=== PATIENT | male | born 1960 | race Caucasian/White ===

== ENCOUNTER 2024-02-07 09:20 | Inpatient (IN) | payer BC, SELFPAY ==
[2024-02-07] VITALS (15 sets, daily range): BP systolic 117–140; BP diastolic 75–87; BMI 28.3; BMI 29.7
--- NOTE | 2024-02-07 08:02 | ED.GENMED ---
History of Present Illness
General
Chief Complaint: Breathing Problem
Source: patient, records and spouse
Time Seen by Provider: 02/07/24 07:45
Travel History
Have you had any contact with someone who has COVID-19?: No
Do you have any symptoms of coronavirus? Fever > 100 degrees, chills, cough, shortness of breath, sore throat, loss of taste or smell, muscle aches, or headache?: No
History of Present Illness
History of Present Illness:
63-year-old male with past medical history of coronary artery disease, hypertension, previous GI bleeding sent to the emergency department by his primary care provider after he has been feeling short of breath, exertional dyspnea, palpitations and
generalized fatigue over the last 2 weeks, has had a downtrending hemoglobin on outpatient labs with his last hemoglobin being around 7 per family doctor who called the patient last night and advised to come to the ER. Patient states at rest he is
asymptomatic. He does note that when exerting himself he will feel some chest tightness. He notes that about 1 week ago he did have a bloody bowel movement but states he has not seen any blood since and denies dark stools. Patient denies any
abdominal pain, fevers, chills, rigors, nausea, vomiting, urinary symptoms or any other concerns. He does take a daily 81 mg aspirin but is no longer on Plavix or other anticoagulants.
Past History
Past History
ED Past Medical History: CAD, HTN, Hypercholesterolemia, Psychiatric and Other (Diverticulosis; right radial artery AV fistula; obstructive sleep apnea; GI bleed)
ED Past Surgical History: Cardiac (PTCA to LAD October 2022) and Tonsilectomy
Patient has exhibited threatening behavior?: No
Social History
Tobacco: Non-smoker
Alcohol: None
Drug: None
Personal:
Living: with family
Employment: Employed
Family History
Family History: Other
Review of Systems
Review of Systems
All Other Systems: ROS reviewed and negative except as documented in HPI and ROS
Phy Exam
Physical Exam
Physical Exam:
GENERAL: Alert , in no apparent distress
EYE: clear conjunctiva b/l
HEAD: NCAT
ENT: o/p clr, mmm.
CARDIAC: Borderline tachycardic rate and rhythm, faint systolic murmur left sternal border
LUNGS: Clear breath sounds bilaterally, no acute respiratory distress, no wheezes/rales/rhonchi
ABDOMEN: Soft, without focal tenderness, no r/g, no cvat
Rectal exam: Dark brown stool, heme positive
NEUROLOGICAL: Alert and oriented
SKIN: Warm and dry, skin intact.
MUSCULOSKELETAL: well perfused.
PSYCH: Normal and appropriate interaction.
Scores
Heart Failure Risk
Heart Failure Risk Score: Not Applicable
Heart Score for Chest Pain Patients
STEMI patient?: Not applicable
Withdrawal Assessment of Alcohol
Withdrawal Assessment Completed?: Not applicable
Course
Orders/Labs/Results
Orders:
Orders
02/07/24 07:55
Blood Bank Products [* Blood Bank Products] Urgent
Blood Bank Products: *Packed RBC Leuko(PRBC's)
Quantity: 1
Transfuse Today: Yes
Reason: Bleeding
Cardiac Monitoring- Treatment ONCE
IV Insert/Care/Rem.- Treatment PRN
Pantoprazole 80 mg/100 ml Nss [Protonix] 80 mg in 100 ml IV NOW
Pantoprazole [Protonix IV] 80 mg IV NOW STA
02/07/24 08:23
Type+Screen Urgent
Complete Blood Count/With Diff Urgent
Comprehensive Metabolic Panel Urgent
PTT Urgent
Prothrombin Time Urgent
02/07/24 08:57
Admit/Transfer Patient As Directed
Co-Sign Provider:
Level of Care: Inpatient admission
Assign to:: Telemetry
Physician / Group: Dr Griffin
Diagnosis: Anemia/GI bleed
Reason for Telemetry: Arrhythmia
Date to Stop Telemetry: 02/10/24
Time to Stop Telemetry: 11:00
Reason for Hospitalization: pte p/w weakness found severe anemia
Expected length of stay greater than two midnights?: Yes
ELOS- Estimated Length of Stay in days: 2
I certify the patient meets the requirements for IP care: Yes
02/07/24 08:58
Code Status As Directed
Resuscitation Status: Full Code
02/07/24 09:19
GASTROINTESTINAL CONSULT Routine
Consulting Provider: Kevin Ramsey
Was physician already notified: Yes
Reason for consult: Anemia/GI bleed
02/07/24 09:30
0.9% Sodium Chloride 1000 ml [Nss] 1,000 ml IV 85 mls/hr
02/07/24 13:00
H&H Q8H
02/07/24 18:00
Pantoprazole 80 mg/100 ml Nss [Protonix] 80 mg in 100 ml IV Q10H
02/07/24 21:00
H&H Q8H
02/10/24 11:00
DC Protocol for Telemetry ONCE
Abnormal Lab Results
02/07/24
08:23
RBC 2.16 L 10^6/uL
(4.70-6.10)
Hgb 6.5 L* g/dL
(13.0-18.0)
Hct 19.5 L* %
(39.0-52.0)
Absolute Monos (auto) 0.8 H 10^3/uL
(0.1-0.6)
Monocytes % 13.5 H %
(1.7-9.3)
Chloride 109 H mmol/L
(98-107)
Total Protein 5.7 L g/dl
(6.3-8.2)
Crossmatch IS Only See Detail
02/07/24 08:23
02/07/24 08:23
Vital Signs
Initial and Last Documented VS:
Initial Vital Signs
Temp Pulse Resp BP Pulse Ox
98.1 F 106 16 138/81 100
02/07/24 07:39 02/07/24 07:39 02/07/24 07:39 02/07/24 07:39 02/07/24 07:39
Last Documented Vital Signs
Temp Pulse Resp BP Pulse Ox
98.2 F 84 19 117/75 97
02/07/24 09:53 02/07/24 10:45 02/07/24 10:45 02/07/24 10:00 02/07/24 10:45
MDM/Problems Addressed
Differential Diagnosis Includes:
Upper GI bleed, lower GI bleed, symptomatic anemia, less concern for an atypical ACS presentation
MDM/Problems Addressed:
63-year-old male presenting emergency department for evaluation at the request of primary care physician for suspected GI bleeding. Patient has had a downtrending hemoglobin over the last month. 2 separate episodes of bloody stool but none within
the last 10 days. Abdominal exam reassuring but patient did have heme positive stool on rectal exam. Last hemoglobin here at this facility in September 2023 was greater than 14. Will check labs, consent for blood products with anticipation of
admission with GI in consultation.
Chronic conditions affecting care: CAD and Other (Previous GI)
Acute Exacerbation and/or Progression of Chronic Illness: Other
*Pulse Oximetry
Patient hypoxic: no
*Sociology Research Assistant Interpretation
Rate: normal
Rhythm: sinus
*Critical Care Note
Total Time (30-74mins, 75-104mins- exclusive of procedures): 30
comment:
Critical care statement: A total of 30 minutes of critical care time was provided for this patient. This includes management of unstable vital signs, evaluation of the patient at bedside, reviewing the patient's pertinent medical records, discussion
with consultants, review of old EKGs and review of pertinent medical records. This time with separate from time utilized to perform the aforementioned documented procedures
Data Reviewed
Review of Other/Old Records Reveals: Labs, Records and Discharge Summary
Comment
Comment:
In October 2022 patient was admitted at this facility for GI bleeding, found to have an active bleeding within the left upper quadrant in the area of the jejunum. Patient ultimately had to be transferred to [facility] for endoscopy
however upon getting to [facility] the bleeding had mostly resolved and they did not pursue any further testing. Patient did have a [facility] endoscopy done in January or February 2023 which also did not show any residual areas of bleeding or
complications. Patient did have an appointment with GI scheduled for tomorrow with Dr. Bermudez.
Patient Management
Discussion with other providers: Hospitalist and Tractor Crane Engineer
Escalation/DeEscalation of care consider admission/obs:
Patient's hemoglobin returned at 6.5. He remains hemodynamically stable with a heart rate between 90 and 100. Blood pressure remains normal. I notified hospitalist team who accepts for continued evaluation and treatment. GI team was also
notified and will come to the ER to evaluate patient. He was consented for blood products.
ED Attending Note
-
Portions of this chart may have been created with voice recognition software.� Occasional wrong word or��sound alike� substitutions may have occurred due to the inherent limitations of voice recognition software.
Discharge Plan
Departure
Patient Disposition: Admit
Date of Disposition: 02/07/24
Time of Disposition: 08:48
Presentation/result/management discussed w/ accepting MD/DO: Hospitalist
Discharge Problem:
Acute gastrointestinal bleeding, Anemia
Interventions
Interventions:
*Risk Screen - Suicide Last Done: 02/07/24 07:39
*Neglect/Abuse Screening Last Done: 02/07/24 07:39
*ED COVID-19 Vaccine History Last Done: 02/07/24 07:39
ED- Cardiac Assessment Last Done: 02/07/24 09:44
ED- Pulmonary Assessment Last Done: 02/07/24 08:29
[2024-02-07] MEDS: PROTONIX IV 80 MG IV (08:37)
[2024-02-07 08:39] LABS: % Basophils 1.2 % (0-2); % Eosinophils 3.4 % (0-6); % Immature Granulocytes 0.2 % (0-0.5); % Lymphocytes 29.5 % (20.5-51.1); % Monocytes 13.5 % (1.7-9.3); % Neutrophils 52.2 % (42.2-75.2); Absolute Basophils 0.1 10^3/uL (0-0.2); Absolute Eosinophils 0.2 10^3/uL (0-0.7); Absolute Lymphocytes 1.7 10^3/uL (1.2-3.4); Absolute Monocytes 0.8 10^3/uL (0.1-0.6); Absolute Neutrophils 2.9 10^3/uL (1.4-6.5); Mean Corp Hgb Conc. 33.3 g/dL (33.0-37.0); Mean Corpuscular Hgb 30.1 pg (27.0-31.0); Mean Corpuscular Volume 90.3 fL (80.0-94.0); Mean Platelet Volume 9.2 fL (7.4-10.4); Nucleated Red Blood Cells % 0 % (-); Platelet Count 211 10^3/uL (130-400); Red Blood Cell Count 2.16 10^6/uL (4.70-6.10); Red Cell Dist. Width 12.1 % (11.5-14.5); White Blood Cell Count 5.6 10^3/uL (4.8-10.8)
[2024-02-07 08:42] LABS: ALT (SGPT) 23 U/L (0-50); AST (SGOT) 25 U/L (17-59); Albumin 3.5 g/dl (3.5-5.0); Alkaline Phosphatase 59 U/L (38-126); Blood Urea Nitrogen 15 mg/dl (9-20); Calcium 9.1 mg/dl (8.4-10.2); Carbon Dioxide 25 mmol/L (22-30); Chloride 109 mmol/L (98-107); Estimated Creatinine Clearance 80 ml/min; Glucose 93 mg/dl (70-99); INR 1.01; PT 13.3 Sec (11.4-14.6); Sodium 137 mmol/L (135-145); Total Bilirubin 0.2 mg/dl (0.2-1.3); Total Protein 5.7 g/dl (6.3-8.2); eGFR > 60.00
[2024-02-07 08:43] LABS: APTT 31.8 Sec (23.4-35.0)
[2024-02-07 08:44] LABS: Hematocrit 19.5 % (39.0-52.0); Hemoglobin 6.5 g/dL (13.0-18.0)
[2024-02-07] MEDS: PROTONIX 100 IV ×2 (08:46→19:47)
--- NOTE | 2024-02-07 09:00 | HPS.HSE ---
Family Physician
-
Family Physician: Reza Meyer, DO
Chief Complaint
-
Abnormal labs, low hemoglobin
History of Present Illness
Patient is 63 years old male with history of hypertension hyperlipidemia CAD, FAVIOLA, GI bleed in the past, presented to the hospital with abnormal labs and generalized weakness. Patient had abnormal labs with a hemoglobin around 7 and his primary
care physician sent him over for further evaluation he has been experiencing shortness of breath, palpitations, profound weakness over the last couple weeks that prompted the labs to be checked by PCP as outpatient. Patient also complains of dark
maroon stools for several days ago but denies any melena or hematemesis. He denies chest pain. He does take aspirin on a regular basis but denies any other anticoagulants or NSAIDs use. Patient denies abdominal pain, dysuria urgency or frequency.
In the ED, hemoglobin 6.5 MCV of 90.3, his last hemoglobin back in 2022 was 14.8. He is hemodynamically stable. He was referred to hospitalist service for further evaluation.
Medical History
Past Medical History
Past Medical History: Reports Other (Hypertension, hyperlipidemia, GI bleed, syncope, obstructive sleep apnea, diverticulosis.)
Past Surgical History: Reports Other (Tonsillectomy, PCI in the past.)
Social History
Tobacco: Non-smoker
Alcohol: None
Drug: None
Family History
Family History: Not pertinent
Allergies / Home Medications
Allergies reflects when Allergies were last updated in [employer].
Home Medications with original date entered in [employer]
Allergy/Medication List:
Allergies
Allergy/AdvReac Type Severity Reaction Status Date / Time
No Known Allergies Allergy Verified 01/01/23 22:15
Home Medications
ascorbic acid (vitamin C) 1,000 mg tablet 1,000 mg PO DAILY@1330 Supplement 10/23/22
cholecalciferol (vitamin D3) 25 mcg (1,000 unit) tablet 25 mcg PO DAILY@1330 Supplement 10/23/22
multivitamin 1 tab PO DAILY@1330 Supplement 10/23/22
fexofenadine 60 mg-pseudoephedrine ER 120 mg tablet,ext.release,12 hr (Beatriz-D 12 Hour) 1 tab PO HSPRN PRN Allergies/congestion 10/24/22
rosuvastatin 20 mg tablet (Crestor) 20 mg PO DAILY@1330 01/02/23
docusate sodium 100 mg capsule (Colace) 100 mg PO DAILYPRN PRN constipation 02/07/24
psyllium husk 2.6 gram/4.1 gram oral powder 1 tbsp PO DAILY 02/07/24
simethicone 80 mg chewable tablet 80 mg PO BIDPRN PRN GAS PAINS 02/07/24
Review of Systems
-
A 12 point ROS was completed and negative except as noted: Yes
Physical Exam
Vital Signs
Vital Signs
Temp Pulse Resp BP Pulse Ox
98.1 F 88 15 138/81 99
02/07/24 07:39 02/07/24 08:51 02/07/24 08:51 02/07/24 07:39 02/07/24 08:51
Physical exam:
General: Acutely ill
HEENT: Normocephalic, Atraumatic and Dry Mucous Membranes
Respiratory: Clear to Auscultation; Negative Wheezes, Rales or Rhonchi
Cardiac: Regular Rhythm and S1/S2
GI: Soft, Nontender and Nondistended
Musculoskeletal: No Clubbing, No Cyanosis and No Edema
Neuro: Awake, Alert and Oriented
Psych: Calm
Physical Exam
General: Other
Laboratory Results
-
02/07/24 08:23
02/07/24 08:23
Laboratory Results
PT 13.3 Sec (11.4-14.6) 02/07/24 08:23
INR 1.01 02/07/24 08:23
APTT 31.8 Sec (23.4-35.0) 02/07/24 08:23
Total Bilirubin 0.2 mg/dl (0.2-1.3) 02/07/24 08:23
AST 25 U/L (17-59) 02/07/24 08:23
ALT 23 U/L (0-50) 02/07/24 08:23
Alkaline Phosphatase 59 U/L (38-126) 02/07/24 08:23
Impression/Plan
-
IMPRESSION:
Patient is 63 years old male with history of CAD, hypertension, hyperlipidemia, among other medical problems who came into the hospital with severe anemia. Concerns for likely acute upper GI bleed as etiology of his anemia. Patient at increased
risk of morbidity and mortality due to acute presentation and multiple comorbidities therefore he will need to be treated in the hospital and monitor for progress and or toxicity of treatment.
PLAN:
Acute blood loss anemia:
Likely due to GI bleed
Hemoglobin 6.5 today
Proceed for blood transfusion
Monitor hemoglobin closely
Acute GI bleed, suspect upper:
Keep n.p.o.
IV fluid
Vascular access
Protonix drip
Monitor hemoglobin close
GI consult ([place] texted GI today)
CAD:
Chest pain-free
Patient on aspirin-will hold aspirin for now
Patient with stent to mid LAD on October 2022 and residual CAD in the apical LAD, distal circumflex, and posterolateral branch treated with medical management. He was on DAPT up until Oct this year per patient report.
Hypertension:
IV hydralazine as needed
Hold oral antihypertensive until able to take oral although I did not see any HTN meds on his list but will reeval
Hyperlipidemia:
Hold statin until able to take oral
DVT prophylaxis:
SCDs
CODE STATUS:
Full code
Total time spent on today's encounter was 75 minutes which included time spent in counseling the patient/family regarding diagnosis and treatment plan as listed above, goals of care, and symptom management. Case was discussed with nursing staff,
specialists, and care coordinators/case management. All labs and imaging personally reviewed by me. Remainder the time spent in detailed review of previous records, lab data, imaging, and other medical provider documentation.
--- NOTE | 2024-02-07 09:50 | CON.GI ---
Addendum entered and electronically signed by Kevin Ramsey MD 02/07/24 12:07:
I saw and examined the patient.
The PA's note was reviewed and I agree with the note.
Comment:
The pt is a 63 year old male with h/o CAD, PTCA to LAD in October 2022 currently on aspirin only stopped Plavix in October 2023, HTN, hyperlipidemia, diverticulosis, right radial artery AV fistula, FAVIOLA, and previous obscure GI bleed who p/w
symptomatic anemia and rectal bleeding.
Impression / Rec:
1. Rectal bleeding, symptomatic anemia - normal baseline Hgb, now 6.5 here. Having associated symptoms. He reports having intermittent stool mixed with blood for past few weeks. He has h/o significant obscure GI bleed about a year ago,
BRBPR/maroon colored bleeding, requiring 8 units of pRBC transfusion. Colonoscopy during that admission failed to isolate source of bleed, CTA showed possible bleeding lesion in prox jejunum, had push enteroscopy which was also -ve. [facility]; however this also failed to isolate bleeding lesion, reportedly showed GAVE and APC'ed but otherwise no other lesion as identified. He also had -ve capsule endoscopy in 11/2022. Patient remained
stable up until this point. Not on DAPT, just ASA. Given his previous history, ? if we can isolate the source of bleeding, but will plan for repeat push enteroscopy and colonoscopy tomorrow.
Original Note:
Consultation
-
Date/Time Consultation Requested: 02/07/24929
Date/Time Consultation Performed: 02/07/2450
Requesting Provider: RADHA Morrow
Performing Provider: Dr. Ramsey/CONSTANCE Waters
Reason for Consultation: anemia, heme pos stool
Medical History
Chief Complaint / HPI
Chief Complaint: anemia, sob
History of Present Illness:
63 yo male with a PMH significant for CAD, PTCA to LAD in October 2022 currently on aspirin only stopped Plavix in October 2023, hypertension, hyperlipidemia, diverticulosis, right radial artery AV fistula, obstructive sleep apnea, significant GI
bleed in October 2022 with acute blood loss anemia requiring 8 units of packed red blood cells and transferred to [facility]. During the hospitalization he was admitted between 10/23/2022 through 11/03/2022 for GI bleed and
acute blood loss anemia. During that time he had a colonoscopy that showed residual brown liquid throughout colon. Without any signs of bleeding. There was pancolonic diverticulosis. During the hospitalization he had multiple periods of
hypotension followed by bright red blood/maroon bleeding. He went for cardiac catheterization on 10/30/2022 that showed an ulcerated area of the mid LAD with stenosis of the stent was placed. The patient was started on Brilinta and aspirin at that
time. The patient had another episode of hypotension during that time with associated bright red blood per rectum. He underwent an emergent EGD that showed a Schatzki's ring, small hiatal hernia, normal stomach and normal duodenum as well as
normal jejunum. The patient had a CTA that showed possible area within the small bowel that was bleeding. Emergent transfer to [facility] was initiated. While at [facility] they changed him from Brilinta to Plavix and he
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 There were no other areas of bleeding to the proximal ileum. The patient had an outpatient capsule endoscopy that was negative. He
was continued on aspirin 81 mg and Plavix. He had a follow-up CBC that showed a hemoglobin of 15.6 in February 2023. The patient came off of pantoprazole on his own. The patient was feeling fine and was seen by cardiology in September. His hemoglobin
at that time was 14.8. Had a stress test which was normal. Plavix was stopped as it had been 1 year since his stent. He remained on aspirin 81 mg. The patient states that intermittently he uses ibuprofen for aches pains or headaches. The
patient states that approximately 3 weeks ago he started having some dyspnea on exertion and fatigue. He did also start to notice that he had intermittent episodes of bright red blood mixed in with the stool and in the bowl on intermittent
occasions usually associated with constipation. The patient had CBC performed by his PCP on 01/29/2023 and at that time his hemoglobin was 8.7. This was repeated again on 02/05/2023 and it was 7.2. He was urged to come to the emergency room given
his symptoms and persistent decline in hemoglobin. Where this morning his hemoglobin was 6.5, rectal exam in the ER was dark brown OB positive. Patient states he has intermittent heartburn/indigestion once every couple weeks. He cannot identify
any triggers. He does not smoke. He does not drink any alcohol. He denies any fevers, chills, nausea, vomiting, melena, dysphagia or dyne aphasia. He denies any early satiety or unintentional weight loss
Past Medical History
Past Medical History: CAD (LAD PTCA), HTN, Hypercholesterolemia and Other (diverticulosis, sleep apnea, right radial AV fistula)
Past Surgical History: Cardiac (PTCA)
Social History
Tobacco: Non-Smoker
Alcohol: None
Drug: None
Personal:
Living: With Family
Family History
Family History: Other (No family history gastrointestinal malignancy or IBD)
Allergies / Home Medications
Allergy/AdvReac Type Severity Reaction Status Date / Time
No Known Allergies Allergy Verified 01/01/23 22:15
�Medication �Instructions �Recorded
ascorbic acid (vitamin C) 1,000 mg 1,000 mg PO DAILY@1330 Supplement 10/23/22
tablet
cholecalciferol (vitamin D3) 25 25 mcg PO DAILY@1330 Supplement 10/23/22
mcg (1,000 unit) tablet
multivitamin 1 tab PO DAILY@1330 Supplement 10/23/22
fexofenadine 60 mg-pseudoephedrine 1 tab PO HSPRN PRN 10/24/22
ER 120 mg tablet,ext.release,12 hr Allergies/congestion
(Beatriz-D 12 Hour)
rosuvastatin 20 mg tablet (Crestor) 20 mg PO DAILY@1330 High 01/02/23
Cholesterol
docusate sodium 100 mg capsule 100 mg PO DAILYPRN PRN constipation 02/07/24
(Colace)
psyllium husk 2.6 gram/4.1 gram 1 tbsp PO DAILY Gastrointestinal 02/07/24
oral powder Issue
simethicone 80 mg chewable tablet 80 mg PO BIDPRN PRN GAS PAINS 02/07/24
Review of Systems
-
All other systems: A 12 pt ROS was Negative except as stated above in HPI
Vital Signs
Temp Pulse Resp BP Pulse Ox
98.1 F 90 16 126/81 98
02/07/24 09:34 02/07/24 09:34 02/07/24 09:34 02/07/24 09:34 02/07/24 09:34
Physical Exam
Exam
General: No Apparent Distress
HEENT: Normocephalic
Respiratory: Clear
Cardiac: Regular Rhythm
GI: Soft, Non Tender, Non Distended and Normal Bowel Sounds
Rectal: Hem Positive (Brown OB positive stool per ER)
Musculoskeletal: No Edema
Skin: Warm and Dry
Neuro: AO x 3
Psych: Calm
Results
WBC 5.6 10^3/uL (4.8-10.8) 02/07/24 08:23
Hgb 6.5 g/dL (13.0-18.0) L* 02/07/24 08:23
Hct 19.5 % (39.0-52.0) L* 02/07/24 08:23
MCV 90.3 fL (80.0-94.0) 02/07/24 08:23
Plt Count 211 10^3/uL (130-400) 02/07/24 08:23
Absolute Neuts (auto) 2.9 10^3/uL (1.4-6.5) 02/07/24 08:23
PT 13.3 Sec (11.4-14.6) 02/07/24 08:23
INR 1.01 02/07/24 08:23
APTT 31.8 Sec (23.4-35.0) 02/07/24 08:23
Sodium 137 mmol/L (135-145) 02/07/24 08:23
Potassium 4.0 mmol/L (3.5-5.1) 02/07/24 08:23
Chloride 109 mmol/L (98-107) H 02/07/24 08:23
Carbon Dioxide 25 mmol/L (22-30) 02/07/24 08:23
BUN 15 mg/dl (9-20) 02/07/24 08:23
Creatinine 0.8 mg/dL (0.7-1.3) 02/07/24 08:23
Calcium 9.1 mg/dl (8.4-10.2) 02/07/24 08:23
Total Bilirubin 0.2 mg/dl (0.2-1.3) 02/07/24 08:23
AST 25 U/L (17-59) 02/07/24 08:23
ALT 23 U/L (0-50) 02/07/24 08:23
Alkaline Phosphatase 59 U/L (38-126) 02/07/24 08:23
Diagnostic Image Results:
Prior GI Procedures:
--- 12/12/2022 VCS: No bleeding identified
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 No bleeding visualized up to proximal ileum. Area reached and ileum tattooed.
--- 10/31/2022 EGD (Dr. Bermudez) Schatzki's ring. Small hiatal hernia. Normal stomach, normal duodenum, normal jejunum.
--- 10/26/2022 colonoscopy (Dr. Navarro) fair prep, residual brown liquid in colon, diverticulosis throughout entire colon. No evidence of bleeding.
Assessment / Plan
-
63 yo male with a PMH significant for CAD, PTCA to LAD in October 2022 currently on aspirin only stopped Plavix in October 2023, hypertension, hyperlipidemia, diverticulosis, right radial artery AV fistula, obstructive sleep apnea, significant GI
bleed in October 2022 with acute blood loss anemia requiring 8 units of packed red blood cells and transferred to [facility] after having EGD/enteroscopy, colonoscopy at [facility] without source of bleeding
identified. CTA that showed possible area within small bowel (left upper quadrant and jejunum) that was bleeding. Patient underwent enteroscopy at [facility] that showed GAVE-like features in stomach treated with APC. No
Cervantes visualized up to proximal ileum and the area was reached in ileum and tattooed. Patient was stopped on Brilinta and changed to Plavix. Video capsule study performed without patient showed no signs of bleeding. Patient remained stable up
until this point. Hemoglobin in September was 12. Started having dyspnea on exertion approximately 3 weeks ago associated with intermittent blood mixed in stool. With progressive blood loss anemia. Hemoglobin on 01/30/2024 was 8.7, repeat on
02/06/2024 was 7.2 and this morning at arrival in ER was 6.5.
Impression:
GI bleeding
Acute blood loss anemia
History LAD stent on aspirin 81 mg only
Plan:
-Transfuse to keep hemoglobin greater than 8 given cardiac history. Patient also has history of need for significant transfusion in the past requiring 8 units of packed red blood cells with prior GI bleed.
-Start pantoprazole 40 mg twice daily
-Clear liquids, no reds
-Plan on EGD/push enteroscopy with colonoscopy tomorrow
-Trend labs
-Further recommendations to be forthcoming.
Data Reviewed
-
Old Records: Reviewed
-
-
Thank you for consultation and allowing me to participate in the patient's care. Please call the senior instructional designer GI physician during the after hours with any questions or concerns.
--- NOTE | 2024-02-07 12:07 | W.PN.UPDATE ---
Update Note
Progress Note Update
billing
[2024-02-07 13:21] LABS: Hematocrit 24.4 % (39.0-52.0)
[2024-02-07] MEDS: NSS 1000 IV (13:50)
[2024-02-07] MEDS: NULYTELY SOLUTION 4 LITERS PO (20:00)
[2024-02-07 21:00] LABS: Hematocrit 24.2 % (39.0-52.0); Hemoglobin 8.1 g/dL (13.0-18.0)
[2024-02-08] VITALS (12 sets, daily range): BP systolic 105–122; BP diastolic 64–76
--- NOTE | 2024-02-08 | PTCARENOTE ---
Pt tolerated colonoscopy prep. Bowels are clear. Pt is resting comfortably w/ call cullen within reach.
[2024-02-08] MEDS: NSS 1000 IV (01:28)
[2024-02-08] MEDS: PROTONIX 100 IV (04:05)
[2024-02-08 05:32] LABS: Hematocrit 21.9 % (39.0-52.0); Hemoglobin 7.3 g/dL (13.0-18.0); Mean Corp Hgb Conc. 33.3 g/dL (33.0-37.0); Mean Corpuscular Hgb 29.4 pg (27.0-31.0); Mean Corpuscular Volume 88.3 fL (80.0-94.0); Mean Platelet Volume 9.3 fL (7.4-10.4); Platelet Count 204 10^3/uL (130-400); Red Blood Cell Count 2.48 10^6/uL (4.70-6.10); White Blood Cell Count 6.9 10^3/uL (4.8-10.8)
[2024-02-08 05:43] LABS: INR 1.16; PT 14.8 Sec (11.4-14.6)
[2024-02-08 06:07] LABS: Blood Urea Nitrogen 8 mg/dl (9-20); Calcium 8.7 mg/dl (8.4-10.2); Carbon Dioxide 25 mmol/L (22-30); Chloride 111 mmol/L (98-107); Estimated Creatinine Clearance 103 ml/min; Glucose 79 mg/dl (70-99); Potassium 4.3 mmol/L (3.5-5.1); Sodium 140 mmol/L (135-145); eGFR > 60.00
--- NOTE | 2024-02-08 07:41 | W.PN.HOSP.TC ---
Addendum entered and electronically signed by Hayden Griffin MD 02/08/24 13:48:
GI said okay to restart aspirin today.
Original Note:
Today's Communication/Plan
-
EGD and colonoscopy today. Blood transfusion. Monitor hemoglobin
Assessment / Plan
Assessment / Plan
Physical exam:
General: Acutely ill
HEENT: Normocephalic, Atraumatic and Dry Mucous Membranes
Respiratory: Clear to Auscultation; Negative Wheezes, Rales or Rhonchi
Cardiac: Regular Rhythm and S1/S2
GI: Soft, Nontender and Nondistended
Musculoskeletal: No Clubbing, No Cyanosis and No Edema
Neuro: Awake, Alert and Oriented
Psych: Calm
A/P:
Acute blood loss anemia:
Likely due to GI bleed
Hemoglobin 6.5--> 7.3
Receiving repeated blood transfusion today
Status post blood transfusion yesterday
Monitor hemoglobin closely
Acute GI bleed, suspect upper:
Keep n.p.o. for EGD and colonoscopy today and resume diet afterwards.
IV fluid
Vascular access
Protonix drip
Monitor hemoglobin closely
GI consult appreciated
EGD and colonoscopy unremarkable per GI report. Plan for capsule endoscopy as outpatient. Monitor hemoglobin. Restart aspirin when okay per GI.
CAD:
Chest pain-free
Patient on aspirin-will hold aspirin for now
Patient with stent to mid LAD on October 2022 and residual CAD in the apical LAD, distal circumflex, and posterolateral branch treated with medical management. He was on DAPT up until Oct this year per patient report.
Hypertension:
IV hydralazine as needed
Hold oral antihypertensive until able to take oral although I did not see any HTN meds on his list but will reeval
Hyperlipidemia:
Hold statin until able to take oral
DVT prophylaxis:
SCDs
CODE STATUS:
Full code
Anticipated Discharge: 24 - 48 hours
Subjective/Interval History
-
Date of Service: February 08, 2024
Patient had bowel prep overnight. No chest pain or shortness of breath or abdominal pain.
Objective Data
-
Labs:
Laboratory Results
02/07/24 02/08/24
20:55 05:16
WBC 6.9
Hgb 8.1 L 7.3 L
Hct 24.2 L 21.9 L
Plt Count 204
PT 14.8 H
INR 1.16
Sodium 140
Potassium 4.3
Chloride 111 H
Carbon Dioxide 25
BUN 8 L
Creatinine 0.7
Glucose 79
Calcium 8.7
Vital Signs:
Vital Signs
Temp Pulse Resp BP Pulse Ox
98.6 F 90 19 115/76 98
02/08/24 03:16 02/08/24 03:16 02/08/24 03:16 02/08/24 03:16 02/08/24 03:16
I&O
02/07/24 02/08/24 02/09/24
06:59 06:59 06:59
Intake Total 4450 / 4450
Output Total 300 / 300
Balance 4150 / 4150
Review of Systems
-
All other systems: Reviewed and negative
[2024-02-08] MEDS: METAMUCIL, KONSYL PO (09:06)
--- NOTE | 2024-02-08 12:18 | PTCARENOTE ---
One unit of PRBCs transfused without issues. No signs/symptoms of reaction noted. HGB this morning - 7.3. Patient went to GI lab for colonoscopy/endoscopy.
--- NOTE | 2024-02-08 12:41 | W.PN.UPDATE ---
Update Note
Progress Note Update
s/p DEEP ENTEROSCOPY AND Colonoscopy
- No evidence of bleeding noted from the upper GI tract until the proximal jejunum
- Preparation of the colon was fair.
- Stool in the entire examined colon.
- Diverticulosis in the sigmoid colon and in the descending colon.
- Internal hemorrhoids.
- No specimens collected.
Recommendation:
- To visualize the small bowel, perform video capsule endoscopy at appointment to be scheduled.
- No old or fresh blood noted in the colon.
- OK for low residue diet.
[2024-02-08] MEDS: NSS IV (13:46)
[2024-02-08] MEDS: VITAMIN C 1000 MG PO (14:37)
[2024-02-08] MEDS: LOW STRENGTH ASPIRIN 81 MG PO (14:37)
[2024-02-08] MEDS: CRESTOR 20 MG PO (14:38)
[2024-02-08] MEDS: THERAGRAN 1 TABLET PO (14:38)
[2024-02-08] MEDS: VITAMIN D3 (cholecalciferol) 25 MCG PO (14:39)
[2024-02-08] MEDS: TYLENOL 650 MG PO (14:42)
[2024-02-08] MEDS: PROTONIX 40 MG PO (19:51)
[2024-02-08] MEDS: CLARITIN 10 MG PO (19:51)
[2024-02-09] VITALS: BP 125/68
[2024-02-09] MEDS: MYLICON 80 MG PO (00:08)
[2024-02-09 00:22] VITALS: BP 125/68
--- NOTE | 2024-02-09 00:54 | PTCARENOTE ---
00:00 pt rang call cullen stating he was having some chest discomfort radiating to his back. VSS - BP 125/68, HR 79, SpO2 99% on room air. EKG NSR. Pt also stating he felt better once he sat up, but denies any nausea and states he thinks he is
'overthinking everything' because he just wants answers on why he was bleeding. Emotional support provided. PRN Simethicone given as ordered. CASUALTY UNDERWRITER made aware, troponin ordered and drawn. Pt stating he is now not noticing the discomfort as much. Plan
of care ongoing.
[2024-02-09 01:13] LABS: Troponin I < 0.012 ng/ml
--- NOTE | 2024-02-09 03:11 | W.PN.UPDATE ---
Update Note
Progress Note Update
RN notified INDUSTRIAL TWISTING MACHINE OPERATOR, patient c/o chest discomfort radiating to back, stable vs, EKG NSR, RN gave Simethicone with relief now. Troponin done and is negative. Hx of Coronary Artery Disease and is on Aspirin.
[2024-02-09 03:24] VITALS: BP 109/73
[2024-02-09 07:35] VITALS: BP 104/67
[2024-02-09 08:07] LABS: Hematocrit 24.3 % (39.0-52.0); Hemoglobin 8.1 g/dL (13.0-18.0); Mean Corp Hgb Conc. 33.3 g/dL (33.0-37.0); Mean Corpuscular Hgb 29.7 pg (27.0-31.0); Mean Platelet Volume 9.8 fL (7.4-10.4); Platelet Count 197 10^3/uL (130-400); Red Blood Cell Count 2.73 10^6/uL (4.70-6.10); Red Cell Dist. Width 12.9 % (11.5-14.5); White Blood Cell Count 6.3 10^3/uL (4.8-10.8)
[2024-02-09] MEDS: PROTONIX 40 MG PO (08:20)
[2024-02-09] MEDS: LOW STRENGTH ASPIRIN 81 MG PO (08:20)
[2024-02-09] MEDS: METAMUCIL, KONSYL PO (08:22)
--- NOTE | 2024-02-09 09:20 | W.PN.HOSP.TC ---
Today's Communication/Plan
-
Discharge planning today.
Assessment / Plan
Assessment / Plan
Physical exam:
General: No acute distress
HEENT: Normocephalic, Atraumatic and Dry Mucous Membranes
Respiratory: Clear to Auscultation; Negative Wheezes, Rales or Rhonchi
Cardiac: Regular Rhythm and S1/S2
GI: Soft, Nontender and Nondistended
Musculoskeletal: No Clubbing, No Cyanosis and No Edema
Neuro: Awake, Alert and Oriented
Psych: Calm
A/P:
Acute blood loss anemia:
Likely due to GI bleed
Hemoglobin 6.5--> 7.3-->8.1
Status post blood transfusion
Monitor hemoglobin closely
Discussed with at bedside today on 02/08
Acute GI bleed, suspect upper:
On regular diet
Off IV fluid
Vascular access
Protonix drip to bid
Monitor hemoglobin closely
GI consult and follow-up appreciated
EGD and colonoscopy unremarkable per GI report. Plan for capsule endoscopy as outpatient. Monitor hemoglobin. Restarted aspirin per GI.
CAD:
Chest pain-free now. Had an episode overnight EKG and troponin unremarkable.
Patient on aspirin
Patient with stent to mid LAD on October 2022 and residual CAD in the apical LAD, distal circumflex, and posterolateral branch treated with medical management. He was on DAPT up until Oct this year per patient report.
Hypertension:
IV hydralazine as needed
Hold oral antihypertensive until able to take oral although I did not see any HTN meds on his list but will reeval
Hyperlipidemia:
Hold statin until able to take oral
DVT prophylaxis:
SCDs
CODE STATUS:
Full code
Anticipated Discharge: Today
Subjective/Interval History
-
Date of Service: February 09, 2024
Patient doing well today. He admits that he had some chest discomfort last night he was stressful and fearful. Denies chest pain today. No active bleeding.
Objective Data
-
Labs:
Laboratory Results
02/09/24
07:23
WBC 6.3
Hgb 8.1 L
Hct 24.3 L
Plt Count 197
Vital Signs:
Vital Signs
Temp Pulse Resp BP Pulse Ox
98.8 F 82 20 104/67 99
02/09/24 07:35 02/09/24 07:35 02/09/24 07:35 02/09/24 07:35 02/09/24 07:35
I&O
02/08/24 02/09/24 02/10/24
06:59 06:59 06:59
Intake Total 4450 / 4450 490 / 490
Output Total 300 / 300
Balance 4150 / 4150 490 / 490
--- NOTE | 2024-02-09 09:49 | W.PN.GI.CBS2 ---
Addendum entered and electronically signed by Puja Mayes MD 02/09/24 11:41:
I saw and examined the patient.
The POSITION DESCRIPTION MANAGER or PA's note was reviewed and I agree with the note.
Comment: Patient without any complaints. No further melena, tolerating diet.
Discussed with patient and regarding further plan.
Obscure GI bleeding, likely related to small bowel angiectasia's.
Push enteroscopy and colonoscopy 02/08/2024 unrevealing.
Outpatient capsule plan. Will need to discuss with Dr. Bermudez regarding timing for the capsule, yield is good to be higher if it is done at the time of melena.
Follow H&H as an outpatient with IV iron supplementation as needed/p.o. iron supplementation
Okay for discharge and will follow-up in office.
Original Note:
Today's Communication / Plan
-
-plan for outpatient capsule study
Assessment / Plan
-
63 yo male with a PMH significant for CAD, PTCA to LAD in October 2022 currently on aspirin only stopped Plavix in October 2023, hypertension, hyperlipidemia, diverticulosis, right radial artery AV fistula, obstructive sleep apnea, significant GI
bleed in October 2022 with acute blood loss anemia requiring 8 units of packed red blood cells and transferred to [facility] after having EGD/enteroscopy, colonoscopy at [facility] without source of bleeding
identified. CTA that showed possible area within small bowel (left upper quadrant and jejunum) that was bleeding. 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 No
Cervantes visualized up to proximal ileum and the area was reached in ileum and tattooed. Patient was stopped on Brilinta and changed to Plavix. Video capsule study performed without patient showed no signs of bleeding. Patient remained stable up
until this point. Hemoglobin in September was 12. Started having dyspnea on exertion approximately 3 weeks ago associated with intermittent blood mixed in stool. With progressive blood loss anemia. Hemoglobin on 01/30/2024 was 8.7, repeat on
02/06/2024 was 7.2 and this morning at arrival in ER was 6.5.
02/08/24, Dr. Mayes:
s/p DEEP ENTEROSCOPY AND Colonoscopy
- No evidence of bleeding noted from the upper GI tract until the proximal jejunum
- Preparation of the colon was fair.
- Stool in the entire examined colon.
- Diverticulosis in the sigmoid colon and in the descending colon.
- Internal hemorrhoids.
- No specimens collected.
Recommendation:
- To visualize the small bowel, perform video capsule endoscopy at appointment to be scheduled.
- No old or fresh blood noted in the colon.
- OK for low residue diet.
Impression:
GI bleeding
Acute blood loss anemia
History LAD stent on aspirin 81 mg only
Constipation
Plan:
-s/p EGD with deep enteroscopy/colonoscopy which showed no evidence of bleeding
-Hemoglobin 8.1 today
-tolerating low-residue diet well
-Plan for outpatient video capsule endoscopy
-For constipation, bowel regimen was discussed with continuing healthy, high-fibet diet, increasing water intake to goal of 64 ounces daily, fiber supplement (psyllium) daily, and Miralax 17grams once a day (titrating dose based on response)
Subjective
Subjective
Date of Service: February 09, 2024
Pt feeling improved, denies abdominal pain, n/v, fever/chills.
States 'I want to go home.'
Objective
Data Reviewed
Laboratory Data:
Laboratory Results
02/09/24 07:23
02/08/24 05:16
Laboratory Results
PT 14.8 Sec (11.4-14.6) H 02/08/24 05:16
INR 1.16 02/08/24 05:16
APTT 31.8 Sec (23.4-35.0) 02/07/24 08:23
Total Bilirubin 0.2 mg/dl (0.2-1.3) 02/07/24 08:23
AST 25 U/L (17-59) 02/07/24 08:23
ALT 23 U/L (0-50) 02/07/24 08:23
Alkaline Phosphatase 59 U/L (38-126) 02/07/24 08:23
Vital Signs and I&O:
Vital Signs
Temp Pulse Resp BP Pulse Ox
98.8 F 82 20 104/67 99
02/09/24 07:35 02/09/24 07:35 02/09/24 07:35 02/09/24 07:35 02/09/24 07:35
I&O
02/08/24 02/09/24 02/10/24
06:59 06:59 06:59
Intake Total 4450 / 4450 490 / 490
Output Total 300 / 300
Balance 4150 / 4150 490 / 490
Physical Exam
Physical Exam
Cardiology: Normal Sinus Rhythm
Pulmonary: Clear
GI: Soft, Non Distended, Non Tender and Normal Bowel Sounds
[2024-02-09] MEDS: METAMUCIL, KONSYL 1 PACKET PO (10:22)
--- NOTE | 2024-02-09 10:37 | W.DCSUMMARY ---
Discharge Summary
Discharge Data
Date of Admission: 02/07/24
Date of Discharge: 02/09/24
-
Pending Results: No
Hospital Course
Patient is 63 years old who has history of CAD, hypertension, hyperlipidemia, diverticulosis, FAVIOLA, recurrent GI bleed, anemia, presented to the hospital with acute blood loss anemia and GI bleed. Patient had some reported dark stools and rectal
bleeding. He had multiple units of blood transfusions. His hemoglobin stabilized and hemoglobin upon discharge was 8.1. GI consulted. GI did upper endoscopy and colonoscopy and did not reveal site of bleeding. This is an occult source of
bleeding but GI feels likely related to small bowel angiectasia. GI recommends capsule endoscopy as outpatient. GI was okay to restart aspirin and he tolerated this well in the hospital. GI also recommends a bowel regimen to avoid constipation.
He will be on oral PPI twice a day and on iron sulfate patches once a day to avoid constipation. There is a plan to monitor CBC as outpatient closely with GI services. Patient also had an atypical episode of chest pain in which cardiac enzyme and
EKG were normal and he is chest pain-free upon discharge. Otherwise, patient is hemodynamically stable and H&H stable. GI cleared her for discharge today.
Discharge duration: 32 minutes
Discharge Plan
-
Patient Disposition: Home with Home Care
Discharge Diagnosis/Procedures: Acute gastrointestinal bleeding. Acute blood loss anemia. Constipation. History of coronary artery disease.
Condition: Good
Diet: Low Cholesterol
Activity: As tolerated
Driving Restrictions: As prior to admission
Blood Work: Please PCP to order CBC, BMP within 1 week
Referrals:
Reza Meyer DO [Family Provider] - in less than 1 week
Kevin Ramsey MD [Active] - in two to four weeks
Prescriptions:
New
pantoprazole [Protonix] 40 mg tablet,delayed release (DR/EC)
40 mg PO BID Qty: 60 0RF
ferrous sulfate 325 mg (65 mg iron) tablet
325 mg PO DAILY Qty: 30 0RF
Continued
multivitamin Tablet
1 tab PO DAILY@1330
ascorbic acid (vitamin C) 1,000 mg Tablet
1,000 mg PO DAILY@1330
cholecalciferol (vitamin D3) 25 mcg (1,000 unit) Tablet
25 mcg PO DAILY@1330
fexofenadine-pseudoephedrine [Beatriz-D 12 Hour] 60-120 mg Tablet Extended Release 12 Hr
1 tab PO HSPRN PRN (Reason: Allergies/congestion)
rosuvastatin [Crestor] 20 mg Tablet
20 mg PO DAILY@1330
docusate sodium [Colace] 100 mg Capsule
100 mg PO DAILYPRN PRN (Reason: constipation)
simethicone 80 mg Tablet,Chewable
80 mg PO BIDPRN PRN (Reason: GAS PAINS)
psyllium husk 2.6 gram/4.1 gram Powder
1 tbsp PO DAILY
Discharge Orders:
Discharge Patient (As Directed); Ordered 02/09/24
Ordered By: Hayden Griffin
Discharge Date and Time
Discharge Date/Time: 02/09/24 13:54
Print Language: VENEZUELAN
[2024-02-09] MEDS: MIRALAX 17 GRAMS PO (11:14)
[2024-02-09 11:25] VITALS: BP 115/69
--- NOTE | 2024-02-09 12:38 | CM ---
[facility] [place]patient lives with his spouse in multilevel house with 1 ch[address].his bed and bath is on the second floor.he amb i and is i with his adl's.dr shannon is his pcp and he uses [facility] for his meds.he has no vn
or ip rehab episodes in the past.
patient is adm with gi bleed/anemia.he had a enteroscopy and colonoscopy.Plan for op capsule study.patient will dc home with no needs.
--- NOTE | 2024-02-09 12:43 | PTCARENOTE ---
Patient for discharge today. Peripheral IV removed. Tele removed. at bedside to transport home. Awaiting discharge order.
[2024-02-09] MEDS: VITAMIN C 1000 MG PO (13:13)
[2024-02-09] MEDS: CRESTOR 20 MG PO (13:13)
[2024-02-09] MEDS: THERAGRAN 1 TABLET PO (13:13)
[2024-02-09] MEDS: VITAMIN D3 (cholecalciferol) 25 MCG PO (13:14)
--- NOTE | 2024-02-09 13:51 | PTCARENOTE ---
Reviewed discharge instructions with patient and . Both verbalize understanding of instructions including medications, and follow ups needed. Left ambulatory with .
== END 2024-02-09 13:54 | disposition home health service (06) | DRG 378 ==
LOC: 4 EAST ACU 09:20
PROVIDERS: Internal Medicine Gastroenterology; Nurse Practitioner; Nurse Practitioner Gerontology; Physician Assistant Medical; ADMITTING PHYSICIAN Hospitalist; CONSULT PHYSICIAN Internal Medicine Gastroenterology; EMERGENCY PHYSICIAN Emergency Medicine; FAMILY PHYSICIAN Student in an Organized Health Care Education/Training Program
PROC: 30233N1 Transfusion of Nonautologous Red Blood Cells into Peripheral Vein, Percutaneous Approach (ICD-10-PCS; 2024-02-07)
PROC: 0DJD8ZZ Inspection of Lower Intestinal Tract, Via Natural or Artificial Opening Endoscopic (ICD-10-PCS; 2024-02-08)
PROC: 0DJ08ZZ Inspection of Upper Intestinal Tract, Via Natural or Artificial Opening Endoscopic (ICD-10-PCS; 2024-02-08)
DX: K92.1 Melena (principal); D62 Acute posthemorrhagic anemia; I25.10 Atherosclerotic heart disease of native coronary artery without angina pectoris; I10 Essential (primary) hypertension; K57.30 Diverticulosis of large intestine without perforation or abscess without bleeding; K64.8 Other hemorrhoids; K59.00 Constipation, unspecified; E78.00 Pure hypercholesterolemia, unspecified; K44.9 Diaphragmatic hernia without obstruction or gangrene; I99.8 Other disorder of circulatory system; G47.33 Obstructive sleep apnea (adult) (pediatric); Z79.82 Long term (current) use of aspirin; Z95.5 Presence of coronary angioplasty implant and graft
CPT/HCPCS: 80048; 80053; 84484; 85014; 85018; 85025; 85027; 85610; 85730; 86850; 86900; 86901; 86920; 93005; 96374; 99291; P9016

== ENCOUNTER → 2024-02-11 11:07 | Outpatient (REF) | payer BC, SELFPAY | LOC: RCS 11:07 | PROVIDERS: ATTENDING PHYSICIAN Nuclear Medicine Nuclear Cardiology; FAMILY PHYSICIAN Student in an Organized Health Care Education/Training Program | DX: I25.10 Atherosclerotic heart disease of native coronary artery without angina pectoris (principal); I35.1 Nonrheumatic aortic (valve) insufficiency | CPT/HCPCS: 93306 ==

== ENCOUNTER 2024-07-30 01:37 | Emergency (ER) | payer BC, SELFPAY ==
[2024-07-30 02:33] VITALS: BP 133/88
[2024-07-30 03:00] VITALS: BP 149/86
[2024-07-30 04:00] VITALS: BP 126/81
--- NOTE | 2024-07-30 04:11 | DOWNTIME ---
There was a [employer] Client Biomedical Engineering Supervisor Downtime on 07/02/2024 from 0100 to 07/02/2024 at 0300. Downtime documentation of patient's care, including medication administrations, has been reconciled in the electronic record per guidelines. Refer to the
patient's paper chart under the miscellaneous tab to see printed paper medication records and downtime forms.
--- NOTE | 2024-07-30 04:16 | ED.GENMED ---
History of Present Illness
<DEEPTI Rodriguez - Last Filed: 07/30/24 06:12>
General
Chief Complaint: Rectal Bleeding
Source: patient and significant other
Exam Limitations: none
Time Seen by Provider: 07/30/24 04:16
Nursing documentation reviewed up to this point in time: agreed with
History of Present Illness
History of Present Illness:
Patient is a 64 yo M w/ PMH of angioectasia & CAD who presents w/ blood red blood per rectum x 1 day. Reports 4 BM this evening each with bright red blood in toilet. Reports more than a few drops of blood but denies blood in underwear. Reports he
has had more BM than usual but could be due to black beans for dinner. Reports some straining w/ BM but denies constipation. He denies abdominal or rectal pain but notes chaffing. Denies fever, chills, N/V, ESPINOZA, dizziness, or fatigue. Denies recent
illness, diet change, constipation, or diarrhea. Reports hx of angioectasia w/ similar symptoms. Reports tx is avoiding constipation and bloodwork checking for anemia. He states he had labs done Sunday and was not anemic. Denies hx of hemorrhoids,
diverticulitis, or bleeding disorders. Denies alcohol or smoking.
Past History
<DEEPTI Rodriguez - Last Filed: 07/30/24 06:12>
Past History
ED Past Medical History: CAD, HTN, Hypercholesterolemia, Psychiatric and Other (Diverticulosis; right radial artery AV fistula; obstructive sleep apnea; GI bleed)
ED Past Surgical History: Cardiac (PTCA to LAD October 2022) and Tonsilectomy
Patient has exhibited threatening behavior?: No
Social History
Tobacco: Non-smoker
Alcohol: None
Drug: None
Personal:
Living: with family
Employment: Employed
Family History
Family History: Other
Review of Systems
<Siomara Tate RADHA - Last Filed: 07/30/24 06:12>
Review of Systems
Constitutional: Denies fever, fatigue or chills
Respiratory: Denies cough or trouble breathing
Cardiac: Denies chest pain or palpitations
ABD/GI: Reports bloody stools; Denies abdominal pain, nausea, vomiting, diarrhea or constipated
: Reports no symptoms
Neurological: Denies dizzy, headache or weakness
Phy Exam
<Siomara [facility] Filed: 07/30/24 06:12>
General Physical Exam
General Presentation: well appearing and no apparent distress
General age: appears stated age
General Skin: warm
General Habitus: normal
General Mental: alert
Cardiovascular Exam
Cardiovascular Exam: regular rate/rhythm, no edema, no gallop and no murmur
Pulmonary Exam
Pulmonary Exam: lungs clear, no respiratory distress, no rales, no crackles, no rhonchi and no wheezing
Gastrointestinal Exam
Gastrointestinal Exam: non tender, soft, no organomegaly, no pulsatile mass, non distended and no masses
Auscultation of Abdomen: hyperactive
Rectal Exam: normal external exam
Course
<Siomara Tate [facility] Filed: 07/30/24 06:12>
Orders/Labs/Results
Orders:
Orders
07/30/24 02:21
Complete Blood Count/With Diff Routine
Comprehensive Metabolic Panel Routine
Protime/PTT Routine
Abnormal Lab Results
07/30/24
02:21
RBC 4.40 L 10^6/uL
(4.70-6.10)
MCH 32.5 H pg
(27.0-31.0)
Absolute Monos (auto) 0.9 H 10^3/uL
(0.1-0.6)
Monocytes % 11.3 H %
(1.7-9.3)
BUN 21 H mg/dl
(07-04)
07/30/24 02:21
07/30/24 02:21
Vital Signs
Initial and Last Documented VS:
Initial Vital Signs
Pulse Ox
98
07/30/24 02:30
Last Documented Vital Signs
Pulse Resp BP Pulse Ox
68 14 125/82 98
07/30/24 04:57 07/30/24 04:00 07/30/24 04:58 07/30/24 05:27
<Karl Aldridge, - Last Filed: 07/30/24 04:47>
Orders/Labs/Results
Orders:
Orders
07/30/24 02:21
Complete Blood Count/With Diff Routine
Comprehensive Metabolic Panel Routine
Protime/PTT Routine
Abnormal Lab Results
07/30/24
02:21
RBC 4.40 L 10^6/uL
(4.70-6.10)
MCH 32.5 H pg
(27.0-31.0)
Absolute Monos (auto) 0.9 H 10^3/uL
(0.1-0.6)
Monocytes % 11.3 H %
(1.7-9.3)
BUN 21 H mg/dl
(07-04)
07/30/24 02:21
07/30/24 02:21
Vital Signs
Initial and Last Documented VS:
Initial Vital Signs
Pulse Ox
98
07/30/24 02:30
Last Documented Vital Signs
Pulse Resp BP Pulse Ox
68 14 125/82 98
07/30/24 04:57 07/30/24 04:00 07/30/24 04:58 07/30/24 05:27
<DEEPTI Rodriguez - Last Filed: 07/30/24 06:12>
MDM/Problems Addressed
Differential Diagnosis Includes:
angioectasia, hemorrhoids, IBD
<DEEPTI Rodriguez - Last Filed: 07/30/24 06:12>
*Critical Care Note
Total Time (30-74mins, 75-104mins- exclusive of procedures): Not Applicable
<Karl Aldridge DO - Last Filed: 07/30/24 04:47>
*Pulse Oximetry
Patient hypoxic: no
ED Attending Note
<DEEPTI Rodriguez - Last Filed: 07/30/24 06:12>
-
Portions of this chart may have been created with voice recognition software.� Occasional wrong word or��sound alike� substitutions may have occurred due to the inherent limitations of voice recognition software.
<Karl Aldridge DO - Last Filed: 07/30/24 04:47>
ED Attending Note
Patient seen and examined by attending physician: Yes
I performed the substantive portion of visit, reviewed & personally made and approve the management plan that is documented in note by myself or KEATON.: Yes
ED Attending Note:
This a pleasant 64-year-old male presents with bright red blood per rectum for the last day. He does have a past medical history significant for angiectasia. He is followed by gastroenterology. Tonight he reported for bowel movements containing
bright red blood in the toilet. Patient states that the blood was dripping into the toilet. He denies blood in his underwear or pants. Patient reports no abdominal pain. Denies any rectal pain. Patient has had similar symptoms in the past. His
creative engagement director at the time told him it would be self-limited. Patient was seen in conjunction with the PA student. I have reviewed and agree with the history and treatment plan presented. On my independent physical exam, patient is awake,
alert, and oriented x3, no acute distress. Heart is regular rate rhythm. Lungs are clear to auscultation bilaterally with no wheezes rales or rhonchi. Abdomen is soft with no tenderness to superficial or deep palpation. Rectal exam performed
with supervision shows bright red blood per rectum. No rectal pain. Good rectal tone.
Labs reviewed H&H is within normal limits. Discussed this with patient. He wishes to be discharged. He will follow-up with GI. He does understand that by leaving and not undergoing further testing or continued admission, a missed diagnosis may
be had. He is aware and will return as directed. Patient expressed good understanding of verbal and discharge instructions.
Discharge Plan
Departure
Patient Disposition: Home (Routine Discharge)
Date of Disposition: 07/30/24
Time of Disposition: 04:44
Patient with high blood pressure during this ER visit?: Yes
Condition: Good
Discharge Problem:
Acute gastrointestinal bleeding
Instructions: Bloody Stools, Adult (DC), BLOOD PRESSURE
Prescriptions:
New
famotidine [Pepcid] 40 mg tablet
40 mg PO DAILY Qty: 30 0RF
No Action
multivitamin Tablet
1 tab PO DAILY@1330
ascorbic acid (vitamin C) 1,000 mg Tablet
1,000 mg PO DAILY@1330
cholecalciferol (vitamin D3) 25 mcg (1,000 unit) Tablet
25 mcg PO DAILY@1330
fexofenadine-pseudoephedrine [Beatriz-D 12 Hour] 60-120 mg Tablet Extended Release 12 Hr
1 tab PO HSPRN PRN (Reason: Allergies/congestion)
rosuvastatin [Crestor] 20 mg Tablet
20 mg PO DAILY@1330
docusate sodium [Colace] 100 mg Capsule
100 mg PO DAILYPRN PRN (Reason: constipation)
simethicone 80 mg Tablet,Chewable
80 mg PO BIDPRN PRN (Reason: GAS PAINS)
psyllium husk 2.6 gram/4.1 gram Powder
1 tbsp PO DAILY
pantoprazole [Protonix] 40 mg tablet,delayed release (DR/EC)
40 mg PO BID Qty: 60 0RF
ferrous sulfate 325 mg (65 mg iron) tablet
325 mg PO DAILY Qty: 30 0RF
Referrals:
Tara Hernandez MD [Active] - Next open appointment
Reza Meyer DO [Family Provider] -
Activity Restrictions/Additional Instructions:
Your prescriptions were sent electronically to the pharmacy that you specified.
It was a pleasure meeting you and taking part in your care. We hope for your continued healing and wellness.
Please read discharge instructions in their entirety. However, they are for general education and may not describe your exact diagnosis at discharge. Information on your ER visit and medical conditions were discussed with you along with appropriate
follow up information...
If indicated, please take your medications as instructed and indicated on discharge paperwork.
Please schedule a follow up appointment as directed. Call to schedule an appointment
Please return to the emergency department with ANY change in, persisting, or worsening of symptoms. If any of your symptoms do not improve, or persist, or become more severe within 6-12 hours, please return to the emergency department for further
care.
Please return to the emergency department if you develop a headache, neck pain/stiffness, fever greater than 100.4F, chest pain, shortness of breath, persistent nausea, vomiting, slurred speech, difficulty walking, numbness/tingling, weakness, signs
of infection or any other symptoms that are worrisome to you.
If you have any questions or concerns please do not hesitate to call the Hospital at or E-mail me directly at [email or web address]
Interventions
Interventions:
*Risk Screen - Suicide Last Done: 07/30/24 04:19
*General Assessment Last Done: 07/30/24 04:19
*Neglect/Abuse Screening Last Done: 07/30/24 04:19
ED- Fall Risk Assessment Last Done: 07/30/24 02:30
*ED COVID-19 Vaccine History Last Done: 07/30/24 04:19
*Nursing Disposition Last Done: 07/30/24 05:27
FZ-Bhyysp-Nzuflpnuad Assessment Last Done: 07/30/24 02:30
ED- Cardiac Assessment Last Done: 07/30/24 02:30
ED- Pulmonary Assessment Last Done: 07/30/24 02:30
Discharge Date and Time
Discharge Date/Time: 07/30/24 05:28
Print Language: IRANIAN
[2024-07-30 04:26] LABS: % Basophils 1.3 % (0-2); % Eosinophils 2.7 % (0-6); % Immature Granulocytes 0.3 % (0-0.5); % Lymphocytes 32.3 % (20.5-51.1); % Monocytes 11.3 % (1.7-9.3); % Neutrophils 52.1 % (42.2-75.2); Absolute Basophils 0.1 10^3/uL (0-0.2); Absolute Eosinophils 0.2 10^3/uL (0-0.7); Absolute Lymphocytes 2.5 10^3/uL (1.2-3.4); Absolute Monocytes 0.9 10^3/uL (0.1-0.6); Absolute Neutrophils 4.1 10^3/uL (1.4-6.5); Hematocrit 40.9 % (39.0-52.0); Hemoglobin 14.3 g/dL (13.0-18.0); Mean Corpuscular Hgb 32.5 pg (27.0-31.0); Mean Platelet Volume 9.9 fL (7.4-10.4); Nucleated Red Blood Cells % 0 % (-); Platelet Count 170 10^3/uL (130-400); Red Cell Dist. Width 13.2 % (11.5-14.5); White Blood Cell Count 7.8 10^3/uL (4.8-10.8)
[2024-07-30 04:27] LABS: ALT (SGPT) 22 U/L (0-50); APTT 32.4 Sec (23.4-35.0); AST (SGOT) 22 U/L (17-59); Albumin 4.6 g/dl (3.5-5.0); Alkaline Phosphatase 60 U/L (38-126); Blood Urea Nitrogen 21 mg/dl (9-20); Calcium 9.8 mg/dl (8.4-10.2); Carbon Dioxide 27 mmol/L (22-30); Chloride 103 mmol/L (98-107); Glucose 88 mg/dl (70-99); INR 1.01; PT 13.1 Sec (11.4-14.6); Potassium 4.3 mmol/L (3.5-5.1); Sodium 142 mmol/L (135-145); Total Bilirubin 0.6 mg/dl (0.2-1.3); Total Protein 6.9 g/dl (6.3-8.2); eGFR > 60.00
--- NOTE | 2024-07-30 04:52 | DOWNTIME ---
There was a [employer] Client Concession Supervisor Downtime on 07/30/2024 from 0100 to 07/30/2024 at 0355. Downtime documentation of patient's care, including medication administrations, has been reconciled in the electronic record per guidelines. Refer to the
patient's paper chart under the miscellaneous tab to see printed paper medication records and downtime forms.
[2024-07-30 04:58] VITALS: BP 125/82
== END 2024-07-30 05:28 | disposition home or self-care (01) ==
LOC: EMR 01:37
PROVIDERS: EMERGENCY PHYSICIAN Student in an Organized Health Care Education/Training Program; FAMILY PHYSICIAN Student in an Organized Health Care Education/Training Program
DX: K92.2 Gastrointestinal hemorrhage, unspecified (principal); I25.10 Atherosclerotic heart disease of native coronary artery without angina pectoris; I10 Essential (primary) hypertension; E78.00 Pure hypercholesterolemia, unspecified; G47.33 Obstructive sleep apnea (adult) (pediatric)
CPT/HCPCS: 99283; 80053; 85025; 85610; 85730

== ENCOUNTER → 2024-09-04 10:23 | Outpatient (REF) | payer BC, SELFPAY | LOC: RAD 10:23 | PROVIDERS: ATTENDING PHYSICIAN Internal Medicine Gastroenterology; FAMILY PHYSICIAN Student in an Organized Health Care Education/Training Program | DX: K92.2 Gastrointestinal hemorrhage, unspecified (principal) | CPT/HCPCS: 78290; A9512 ==

== ENCOUNTER → 2025-01-21 11:13 | Outpatient (REF) | payer BC, SELFPAY | LOC: RCS 11:13 | PROVIDERS: ATTENDING PHYSICIAN Nuclear Medicine Nuclear Cardiology; FAMILY PHYSICIAN Student in an Organized Health Care Education/Training Program | DX: I25.10 Atherosclerotic heart disease of native coronary artery without angina pectoris (principal); I35.1 Nonrheumatic aortic (valve) insufficiency; I35.0 Nonrheumatic aortic (valve) stenosis | CPT/HCPCS: 93306 ==